=== PATIENT | male | born 1990 | race African-American/Black ===

== ENCOUNTER 2021-01-06 23:27 | Inpatient (IN) | payer SELFPAY ==
[~2021-01-06] VITALS: Ht 167.6 cm; Wt 101.7 kg
[2021-01-06] MEDS ORDERED: KETOROLAC TROMETHAMINE 30 MG/ML VIAL IV STA (23:44)
[2021-01-07] VITALS (21 sets, daily range): BP systolic 100–192; BP diastolic 46–112
[2021-01-07 00:01] LABS: BASOPHILS % 0.1 % (0.0-1.0); EOSINOPHILS % 0.4 % (0.0-6.0); HEMATOCRIT 46.4 % (38.2-49.6); HEMOGLOBIN 15.8 g/dL (14.0-18.0); LYMPHOCYTES # (AUTO) 1.9 (1.0-3.2); LYMPHOCYTES % 21.8 % (18.0-39.1); MEAN CORPUSCULAR HEMOGLOBIN 32.2 pg (28-32); MEAN CORPUSCULAR HGB CONC 34.1 g/dL (31-35); MEAN CORPUSCULAR VOLUME 94.7 fL (81-99); MONOCYTES # (AUTO) 0.3 (0.2-0.8); MONOCYTES % 2.9 % (4.4-11.3); NEUTROPHILS # (AUTO) 6.3 (2.1-6.9); NEUTROPHILS % 74.4 % (38.7-80.0); PLATELET COUNT 298 x10e3/uL (140-360); RED CELL DISTRIBUTION WIDTH 12.3 % (11.7-14.4)
[2021-01-07 00:16] LABS: INR 1.17; PARTIAL THROMBOPLASTIN TIME 23.8 seconds (23.8-35.5); PROTHROMBIN TIME 15.6 seconds (11.9-14.5)
[2021-01-07 00:26] LABS: ALANINE AMINOTRANSFERASE 458 IU/L (0-55); ALBUMIN 4.2 g/dL (3.5-5.0); ALBUMIN/GLOBULIN RATIO 1.2 (0.8-2.0); ALKALINE PHOSPHATASE 61 IU/L (40-150); ANION GAP 24.8 mmol/L (8-16); BLOOD UREA NITROGEN 8 mg/dL (7-26); BUN/CREATININE RATIO 6 (6-25); CALCIUM 8.3 mg/dL (8.4-10.2); CARBON DIOXIDE 15 mmol/L (22-29); CHLORIDE 103 mmol/L (98-107); CREATINE KINASE 416 IU/L (30-200); CREATININE, SERUM 1.31 mg/dL (0.72-1.25); EST GLOMERULAR FILTRATION RATE > 60 ML/MIN (60-); GLUCOSE 215 mg/dL (74-118); POTASSIUM 3.8 mmol/L (3.5-5.1); SODIUM 139 mmol/L (136-145)
[2021-01-07 02:06] LABS: AMPHETAMINES SCREEN,URINE NEGATIVE (NEGATIVE); BENZODIAZEPINES SCREEN,URINE POSITIVE (NEGATIVE); PHENCYCLIDINE SCREEN,URINE NEGATIVE (NEGATIVE)
[2021-01-07] MEDS ORDERED: HYDRALAZINE HCL 20 MG/ML VIAL IV STA (02:19)
[2021-01-07] MEDS ORDERED: HYDRALAZINE HCL 20 MG/ML VIAL ONE (02:34)
[2021-01-07] MEDS ORDERED: DEXTROSE 5% IV ONE ×4 (02:45→09:00)
[2021-01-07] MEDS ORDERED: ACETYLCYSTEINE IV ONE ×4 (02:45→09:00)
[2021-01-07 02:55] LABS: AMYLASE 71 U/L (25-125); LIPASE 19 U/L (8-78)
[2021-01-07] MEDS ORDERED: ACETYLCYSTEINE 200 MG/1 ML IV ONE (02:59)
[2021-01-07] MEDS ORDERED: DEXTROSE 5% 100ML 200 ML IV ONE (03:03)
[2021-01-07] MEDS ORDERED: DEXTROSE 5% 1,000 ML IV ONE ×2 (03:04→03:14)
[2021-01-07] MEDS ORDERED: ONDANSETRON HCL INJ 2MG/ML 2ML 2 MG/ML VIAL IV PRN (03:30)
[2021-01-07] MEDS ORDERED: IOPAMIDOL 370 MG/ML 200 ML INFUS..BTL INJ ONE (03:56)
[2021-01-07] MEDS ORDERED: SODIUM CHLORIDE 0.9% 50ML 50 ML ONE (03:56)
[2021-01-07] MEDS: SODIUM CHLORIDE 0.9% 1000ML 1,000 ML IV SCH ×4 (04:05→22:46)
[2021-01-07] MEDS: HYDRALAZINE HCL 20 MG/ML VIAL IV PRN ×2 (04:30→08:37)
[2021-01-07] MEDS: ONDANSETRON HCL INJ 2MG/ML 2ML 2 MG/ML VIAL IV PRN ×2 (04:30→17:46)
[2021-01-07] MEDS: MORPHINE SULFATE INJ 4 MG/ML INJ 1ML IV PRN ×2 (04:30→17:46)
[2021-01-07 06:14] LABS: BASOPHILS % 0.2 % (0.0-1.0); EOSINOPHILS % 0.2 % (0.0-6.0); HEMATOCRIT 44.4 % (38.2-49.6); HEMOGLOBIN 15.1 g/dL (14.0-18.0); LYMPHOCYTES # (AUTO) 2.1 (1.0-3.2); LYMPHOCYTES % 18.9 % (18.0-39.1); MEAN CORPUSCULAR HEMOGLOBIN 31.8 pg (28-32); MEAN CORPUSCULAR VOLUME 93.5 fL (81-99); MONOCYTES # (AUTO) 0.4 (0.2-0.8); MONOCYTES % 3.7 % (4.4-11.3); NEUTROPHILS # (AUTO) 8.3 (2.1-6.9); NEUTROPHILS % 76.5 % (38.7-80.0); PLATELET COUNT 271 x10e3/uL (140-360); RED BLOOD COUNT 4.75 x10e6/uL (4.3-5.7); RED CELL DISTRIBUTION WIDTH 12.3 % (11.7-14.4)
[2021-01-07 06:44] LABS: ALANINE AMINOTRANSFERASE 824 IU/L (0-55); ALBUMIN 3.5 g/dL (3.5-5.0); ALBUMIN/GLOBULIN RATIO 1.4 (0.8-2.0); ALKALINE PHOSPHATASE 56 IU/L (40-150); BLOOD UREA NITROGEN 7 mg/dL (7-26); BUN/CREATININE RATIO 7 (6-25); CALCIUM 7.5 mg/dL (8.4-10.2); CARBON DIOXIDE 15 mmol/L (22-29); CHLORIDE 106 mmol/L (98-107); CREATININE, SERUM 1.05 mg/dL (0.72-1.25); EST GLOMERULAR FILTRATION RATE > 60 ML/MIN (60-); GLUCOSE 239 mg/dL (74-118); SODIUM 136 mmol/L (136-145)
[2021-01-07 07:37] LABS: INR 1.55; PROTHROMBIN TIME 19.3 seconds (11.9-14.5)
[2021-01-07 07:38] LABS: PARTIAL THROMBOPLASTIN TIME 29.2 seconds (23.8-35.5)
[2021-01-07] MEDS ORDERED: LABETALOL HCL 5 MG/ML 20ML VIAL IV PRN (09:30)
[2021-01-07] MEDS ORDERED: POTASSIUM CHLORIDE 20 MEQ TAB CR PO ONE ×2 (09:55→11:00)
[2021-01-07] MEDS: NIFEDIPINE CR 30 MG TAB PO SCH (10:14)
[2021-01-07] MEDS: NICARDIPINE HCL SOLN 20 MG in SODIUM CHLORIDE 0.9% 250ML 200 ML IV SCH ×2 (10:14→16:22)
[2021-01-07 14:32] LABS: CREATINE KINASE MB 14.7 ng/mL (0-5.0)
[2021-01-07] MEDS ORDERED: ASPIRIN 325 MG TAB PO ONE (15:50)
[2021-01-07] MEDS: LABETALOL HCL 100 MG TAB PO SCH (17:38)
[2021-01-07] MEDS ORDERED: LABETALOL HCL 100 MG TAB PO SCH (17:45)
[2021-01-08] VITALS (25 sets, daily range): BP systolic 98–153; BP diastolic 50–101
[2021-01-08] MEDS: ALBUTEROL/IPRATROPIUM 3 ML NEB NEB SCH ×4 (00:20→19:53)
[2021-01-08] MEDS: MORPHINE SULFATE INJ 4 MG/ML INJ 1ML IV PRN ×2 (04:30→21:26)
[2021-01-08] MEDS: DEXTROSE 5% IV SCH ×2 (05:00→22:04)
[2021-01-08] MEDS ORDERED: ACETYLCYSTEINE 200 MG/ML 4ML VIAL MC SCH (05:00)
[2021-01-08] MEDS: ACETYLCYSTEINE IV SCH ×2 (05:00→22:04)
[2021-01-08 05:11] LABS: COLOR,URINE BROWN (YELLOW)
[2021-01-08 05:12] LABS: CLARITY,URINE TURBID (CLEAR); KETONES,URINE 1+ (NEGATIVE); LEUKOCYTE ESTERASE ,URINE LARGE (NEGATIVE); NITRITE,URINE POSITIVE (NEGATIVE); PROTEIN,URINE DIPSTICK >=300 (NEGATIVE); URINE UROBILINOGEN 1 mg/dL (0.2 - 1)
[2021-01-08 05:23] LABS: AMORPHOUS SEDIMENT,URINE MANY (FEW); BACTERIA,URINE MODERATE /HPF; EPITHELIAL CELLS,URINE FEW /LPF; RBC,URINE 21-50 /HPF (0-5)
[2021-01-08 05:52] LABS: BASOPHILS % 0.2 % (0.0-1.0); EOSINOPHILS # (AUTO) 10.7 (0.0-0.4); HEMATOCRIT 39.2 % (38.2-49.6); HEMOGLOBIN 12.5 g/dL (14.0-18.0); LYMPHOCYTES # (AUTO) 0.8 (1.0-3.2); LYMPHOCYTES % 4.6 % (18.0-39.1); MEAN CORPUSCULAR HEMOGLOBIN 32.6 pg (28-32); MEAN CORPUSCULAR HGB CONC 31.9 g/dL (31-35); MEAN CORPUSCULAR VOLUME 102.1 fL (81-99); MONOCYTES # (AUTO) 0.1 (0.2-0.8); MONOCYTES % 0.3 % (4.4-11.3); NEUTROPHILS # (AUTO) 5.6 (2.1-6.9); NEUTROPHILS % 32.5 % (38.7-80.0); PLATELET COUNT 179 x10e3/uL (140-360); RED BLOOD COUNT 3.84 x10e6/uL (4.3-5.7); RED CELL DISTRIBUTION WIDTH 11.9 % (11.7-14.4)
[2021-01-08 06:02] LABS: INR 3.3; PROTHROMBIN TIME 34.3 seconds (11.9-14.5)
[2021-01-08 06:03] LABS: PARTIAL THROMBOPLASTIN TIME 37.1 seconds (23.8-35.5)
[2021-01-08 06:11] LABS: ALBUMIN/GLOBULIN RATIO 1.4 (0.8-2.0); ALKALINE PHOSPHATASE 59 IU/L (40-150); BLOOD UREA NITROGEN 13 mg/dL (7-26); BUN/CREATININE RATIO 10 (6-25); CARBON DIOXIDE 14 mmol/L (22-29); CHLORIDE 108 mmol/L (98-107); CREATININE, SERUM 1.25 mg/dL (0.72-1.25); EST GLOMERULAR FILTRATION RATE > 60 ML/MIN (60-); GLUCOSE 150 mg/dL (74-118); SODIUM 134 mmol/L (136-145)
[2021-01-08 06:13] LABS: CALCIUM 6.8 mg/dL (8.4-10.2)
[2021-01-08 06:23] LABS: CHOL/HDL RATIO 3.1 (3.9-4.7)
[2021-01-08 06:32] LABS: ALANINE AMINOTRANSFERASE 5612 IU/L (0-55)
[2021-01-08 06:42] LABS: THYROID STIMULATING HORMONE 0.104 uIU/mL (0.350-4.940)
[2021-01-08] MEDS: LABETALOL HCL 100 MG TAB PO SCH ×2 (06:43→17:49)
[2021-01-08] MEDS: SODIUM CHLORIDE 0.9% 1000ML 1,000 ML IV SCH ×2 (06:43→10:08)
[2021-01-08 08:21] LABS: BAND NEUTROPHILS % (MANUAL) 9 %; LYMPHOCYTES % (MANUAL) 2 % (19-48); METAMYELOCYTES % (MANUAL) 2 % (0-0); NEUTROPHILS % (MANUAL) 87 % (40-74)
[2021-01-08 08:30] LABS: PLATELET ESTIMATE ADEQUATE; PLATELET MORPHOLOGY COMMENT NORMAL
[2021-01-08] MEDS ORDERED: SODIUM CHLORIDE 0.9% 100 ML ONE ×2 (09:15→09:56)
[2021-01-08] MEDS ORDERED: IOPAMIDOL 370 MG/ML 200 ML INFUS..BTL INJ ONE (09:16)
[2021-01-08] MEDS ORDERED: CALCIUM GLUCONATE 10% INJ 9.3 MEQ in SODIUM CHLORIDE 0.9% 100 ML 100 ML IV ONE (09:30)
[2021-01-08] MEDS: NIFEDIPINE CR 30 MG TAB PO SCH (09:39)
[2021-01-08] MEDS ORDERED: CALCIUM GLUCONATE 10% INJ 0.465 MEQ/ML VIAL ONE (09:55)
[2021-01-08] MEDS ORDERED: CEFEPIME 1GM/NS 0.9% 50 ML 50 ML IV SCH (11:45)
[2021-01-08] MEDS ORDERED: LEVOFLOXACIN 750MG/D5W 150ML 150 ML IV SCH (11:45)
[2021-01-08] MEDS ORDERED: GUAIFENESIN/DEXTROMETHORPHAN LIQD 5 ML UDC NG PRN (11:45)
[2021-01-08 12:21] LABS: INR 3.54; PROTHROMBIN TIME 36.2 seconds (11.9-14.5)
[2021-01-08] MEDS: CEFEPIME HCL 1GM 1 GM in SODIUM CHLORIDE 0.9% 50ML 50 ML IV SCH (12:22)
[2021-01-08 13:26] LABS: B-TYPE NATRIURETIC PEPTIDE2 121.9 pg/mL (0-100)
[2021-01-08] MEDS ORDERED: SODIUM CHLORIDE 0.9% 1000ML 2,990 ML IV ONE (13:45)
[2021-01-08] MEDS ORDERED: FUROSEMIDE INJ 10 MG/ML 4 ML VIAL IV ONE (20:15)
[2021-01-08] MEDS ORDERED: DEXTROSE 5% 1,000 ML IV ONE (22:05)
[2021-01-08] MEDS: SODIUM BICARBONATE 8.4% SYRING 150 ML in DEXTROSE 5% 1,000 ML IV SCH (22:36)
[2021-01-08] MEDS ORDERED: SODIUM BICARBONATE 8.4% SYRING 50 ML ONE (22:36)
[2021-01-08] MEDS ORDERED: ALBUMIN 25% 25GM 100ML 0.25 GM/ML BTL IV ONE ×2 (23:15→23:30)
[2021-01-08] MEDS ORDERED: PHYTONADIONE 10 MG/ML AMP SQ ONE (23:45)
[2021-01-08] MEDS ORDERED: RIFAXIMIN 550 MG TABLET PO SCH (23:45)
[2021-01-08] MEDS ORDERED: LACTULOSE SYRUP 20 GM/30 ML UDC PO PRN (23:45)
[2021-01-09] VITALS (21 sets, daily range): BP systolic 121–192; BP diastolic 67–99
[2021-01-09] MEDS ORDERED: PHYTONADIONE 10 MG/ML AMP IV ONE ×2 (00:15→09:00)
[2021-01-09] MEDS: CEFEPIME HCL 1GM 1 GM in SODIUM CHLORIDE 0.9% 50ML 50 ML IV SCH (00:22)
[2021-01-09] MEDS ORDERED: SODIUM CHLORIDE 0.9% 50ML 50 ML ONE (00:42)
[2021-01-09] MEDS: ALBUTEROL/IPRATROPIUM 3 ML NEB NEB SCH ×3 (03:45→11:30)
[2021-01-09] MEDS: LABETALOL HCL 100 MG TAB PO SCH (06:40)
[2021-01-09 08:06] LABS: ALBUMIN 2.9 g/dL (3.5-5.0); ALBUMIN/GLOBULIN RATIO 1.3 (0.8-2.0); ANION GAP 20.4 mmol/L (8-16); CREATININE, SERUM 4.85 mg/dL (0.72-1.25); POTASSIUM 5.4 mmol/L (3.5-5.1)
[2021-01-09 08:12] LABS: CALCIUM 6.8 mg/dL (8.4-10.2)
[2021-01-09 08:21] LABS: INR 2.44; PARTIAL THROMBOPLASTIN TIME 37.3 seconds (23.8-35.5); PROTHROMBIN TIME 27.3 seconds (11.9-14.5)
[2021-01-09] MEDS: NIFEDIPINE CR 30 MG TAB PO SCH (08:37)
[2021-01-09] MEDS: RIFAXIMIN 550 MG TABLET PO SCH ×2 (08:37→17:07)
[2021-01-09 08:38] LABS: BASOPHILS # (AUTO) 0.1 (0.0-0.1); BASOPHILS % 0.4 % (0.0-1.0); EOSINOPHILS # (AUTO) 12.5 (0.0-0.4); EOSINOPHILS % 66.5 % (0.0-6.0); HEMATOCRIT 25.5 % (38.2-49.6); HEMOGLOBIN 8.2 g/dL (14.0-18.0); LYMPHOCYTES # (AUTO) 2.1 (1.0-3.2); LYMPHOCYTES % 11.3 % (18.0-39.1); MEAN CORPUSCULAR HEMOGLOBIN 33.9 pg (28-32); MEAN CORPUSCULAR HGB CONC 32.2 g/dL (31-35); MEAN CORPUSCULAR VOLUME 105.4 fL (81-99); MONOCYTES # (AUTO) 0.1 (0.2-0.8); MONOCYTES % 0.6 % (4.4-11.3); NEUTROPHILS # (AUTO) 3.9 (2.1-6.9); NEUTROPHILS % 20.7 % (38.7-80.0); PLATELET COUNT 141 x10e3/uL (140-360); RED BLOOD COUNT 2.42 x10e6/uL (4.3-5.7)
[2021-01-09] MEDS ORDERED: PHYTONADIONE 10 MG/ML AMP SQ SCH (09:00)
[2021-01-09] MEDS ORDERED: PHYTONADIONE 10 MG/ML AMP IV SCH (09:00)
[2021-01-09] MEDS: OCTREOTIDE ACETATE 0.1 MG/ML 100MCG AMP SQ SCH ×3 (10:12→21:00)
[2021-01-09] MEDS: MORPHINE SULFATE INJ 4 MG/ML INJ 1ML IV PRN (10:36)
[2021-01-09] MEDS: LACTULOSE SYRUP 20 GM/30 ML UDC PO SCH ×3 (10:36→22:00)
[2021-01-09] MEDS: ALBUMIN 25% 25GM 100ML 0.25 GM/ML BTL IV SCH ×2 (10:44→18:32)
[2021-01-09] MEDS ORDERED: PHYTONADIONE 10MG/ML 20 MG in SODIUM CHLORIDE 0.9% 50ML 50 ML IV ONE (11:00)
[2021-01-09] MEDS ORDERED: SODIUM CHLORIDE 0.45% 1,000 ML ONE (11:59)
[2021-01-09] MEDS ORDERED: LEVOFLOXACIN 250MG/D5W 50ML 50 ML IV SCH (12:00)
[2021-01-09 12:33] LABS: ABG HCO3 19 mmol/L (22-26); ABG PCO2 37 mmHg (35-45); ABG PH 7.32 (7.35-7.45); ABG PO2 201 mmHg (80-105); ABG TCO2 20
[2021-01-09] MEDS ORDERED: CALCIUM CHLORIDE 10% 1.36 MEQ/ML 10ML SYR IV ONE (12:49)
[2021-01-09] MEDS ORDERED: DOPAmine/D5W 1.6 MG/ML 400 MG/250ML PREMIX IV ONE (12:49)
[2021-01-09] MEDS ORDERED: SODIUM BICARBONATE 8.4% INJ 50 ML SYR ONE ×2 (12:49→12:52)
[2021-01-09] MEDS ORDERED: EPINEPHRINE HCL SYRINGE ONE ×2 (12:49→12:52)
[2021-01-09] MEDS ORDERED: ATROPINE SULFATE 0.1 MG/ML 10ML SYR ONE ×2 (12:49→12:52)
[2021-01-09] MEDS ORDERED: VECURONIUM BROMIDE FOR INJ 20 MG VIAL ONE (12:55)
[2021-01-09] MEDS ORDERED: WATER STERILE 10 ML VIAL ONE (12:55)
[2021-01-09] MEDS ORDERED: ETOMIDATE 2 MG/ML 10 ML INJ IV ONE (12:55)
[2021-01-09] MEDS ORDERED: SODIUM CHLORIDE 0.9% 1000ML 2,000 ML IV PRN (15:00)
[2021-01-09] MEDS ORDERED: HEPARIN SOD (PORCINE) 1000 UNIT/ML SDV IV PRN (15:00)
[2021-01-09] MEDS: DEXTROSE 5% IV SCH (15:13)
[2021-01-09] MEDS: ACETYLCYSTEINE IV SCH (15:13)
[2021-01-09] MEDS ORDERED: ALBUTEROL/IPRATROPIUM 3 ML NEB NEB PRN (15:30)
[2021-01-09] MEDS: SODIUM BICARBONATE 8.4% SYRING 150 ML in DEXTROSE 5% 1,000 ML IV SCH (15:33)
[2021-01-09] MEDS ORDERED: NICARDIPINE HCL SOLN 20 MG in SODIUM CHLORIDE 0.9% 250ML 200 ML IV SCH (15:45)
[2021-01-09] MEDS ORDERED: SODIUM CHLORIDE 0.9% 1000ML 1,000 ML IV ONE (17:15)
[2021-01-09] MEDS ORDERED: LABETALOL HCL 200 MG TAB PO SCH (18:00)
[2021-01-09] MEDS ORDERED: IBUPROFEN 600 MG TAB PO PRN (19:00)
[2021-01-09] MEDS ORDERED: LABETALOL HCL 5 MG/ML 20ML VIAL IV PRN (19:30)
[2021-01-09] MEDS ORDERED: IBUPROFEN 800MG/ 200ML 800 MG in SODIUM CHLORIDE 0.9% 250ML 250 ML IV ONE (19:45)
[2021-01-09] MEDS ORDERED: MIDAZOLAM HCL 5MG/ML 10ML VIAL 0 ML IV ONE (19:52)
[2021-01-09] MEDS ORDERED: FENTANYL ONE (19:52)
[2021-01-09] MEDS ORDERED: [UNRECOGNIZED DRUG - OTHER] ONE (19:52)
[2021-01-09] MEDS ORDERED: PROPOFOL IV EMULSION 10MG/ML 100 ML ONE (19:56)
[2021-01-09 20:07] LABS: BASOPHILS # (AUTO) 0.1 (0.0-0.1); BASOPHILS % 0.3 % (0.0-1.0); EOSINOPHILS # (AUTO) 0.1 (0.0-0.4); EOSINOPHILS % 0.7 % (0.0-6.0); HEMATOCRIT 22.6 % (38.2-49.6); LYMPHOCYTES # (AUTO) 2.6 (1.0-3.2); MEAN CORPUSCULAR HEMOGLOBIN 33.3 pg (28-32); MEAN CORPUSCULAR VOLUME 107.6 fL (81-99); MONOCYTES # (AUTO) 0.8 (0.2-0.8); MONOCYTES % 5.1 % (4.4-11.3); NEUTROPHILS # (AUTO) 11.6 (2.1-6.9); NEUTROPHILS % 75.6 % (38.7-80.0); PLATELET COUNT 147 x10e3/uL (140-360)
[2021-01-09] MEDS ORDERED: IBUPROFEN 800MG/ 200ML 200 ML IV ONE (20:13)
[2021-01-09] MEDS ORDERED: PROPOFOL IV EMULSION 10MG/ML 100 ML IV SCH (20:15)
[2021-01-09 20:25] LABS: ALBUMIN 3.3 g/dL (3.5-5.0); ALBUMIN/GLOBULIN RATIO 0.9 (0.8-2.0); ANION GAP 26.4 mmol/L (8-16); CALCIUM 7.7 mg/dL (8.4-10.2); CREATININE, SERUM 4.3 mg/dL (0.72-1.25); POTASSIUM 4.4 mmol/L (3.5-5.1)
[2021-01-09 20:38] LABS: ALBUMIN 3.4 g/dL (3.5-5.0); BILIRUBIN,DIRECT 8.2 mg/dL (0.0-0.5)
[2021-01-09 20:47] LABS: ANISOCYTOSIS SLIGHT; LYMPHOCYTES % (MANUAL) 21 % (19-48); MONOCYTES % (MANUAL) 6 % (3.4-9.0); NEUTROPHILS % (MANUAL) 73 % (40-74); PLATELET ESTIMATE ADEQUATE; PLATELET MORPHOLOGY COMMENT NORMAL
[2021-01-09 21:44] LABS: INR 1.66; PROTHROMBIN TIME 20.3 seconds (11.9-14.5)
[2021-01-09 21:45] LABS: PARTIAL THROMBOPLASTIN TIME 32.1 seconds (23.8-35.5)
[2021-01-09] MEDS ORDERED: LORAZEPAM INJ 2 MG/ML VIAL IV PRN (21:45)
[2021-01-09] MEDS ORDERED: PIPERACILLIN/TAZO 2.25 GM 50 ML IV SCH (22:00)
[2021-01-09] MEDS ORDERED: PIPERACILLIN/TAZOBACTAM 2.25 GM in SODIUM CHLORIDE 0.9% 50ML 50 ML IV SCH (22:00)
[2021-01-09] MEDS: NOREPINEPHRINE INJ 4MG/4ML 8 MG in DEXTROSE 5% 250ML 250 ML IV PRN (22:15)
[2021-01-09] MEDS ORDERED: NOREPINEPHRINE 8 MG/D5W 250 ML 250 ML ONE (22:15)
[2021-01-09 22:32] LABS: HEMATOCRIT 18.9 % (38.2-49.6); MEAN CORPUSCULAR HEMOGLOBIN 33.9 pg (28-32); MEAN CORPUSCULAR HGB CONC 31.2 g/dL (31-35); MEAN CORPUSCULAR VOLUME 108.6 fL (81-99); PLATELET COUNT 121 x10e3/uL (140-360); RED BLOOD COUNT 1.74 x10e6/uL (4.3-5.7); RED CELL DISTRIBUTION WIDTH 15.9 % (11.7-14.4)
[2021-01-09 22:39] LABS: HEMOGLOBIN 5.9 g/dL (14.0-18.0)
[2021-01-09 22:45] LABS: ABG PCO2 36 mmHg (35-45); ABG PH 7.33 (7.35-7.45); ABG PO2 215 mmHg (80-105)
[2021-01-09] MEDS ORDERED: SODIUM CHLORIDE 0.9% 250ML 250 ML IV ONE (22:45)
[2021-01-09 22:46] LABS: ABG HCO3 19 mmol/L (22-26); ABG TCO2 20
[2021-01-09 22:50] LABS: ALANINE AMINOTRANSFERASE 2396 IU/L (0-55); ALBUMIN 2.8 g/dL (3.5-5.0); ALKALINE PHOSPHATASE 75 IU/L (40-150); BILIRUBIN,DIRECT 7.3 mg/dL (0.0-0.5)
[2021-01-09 22:53] LABS: ALANINE AMINOTRANSFERASE 2431 IU/L (0-55); ALBUMIN 2.9 g/dL (3.5-5.0); ALBUMIN/GLOBULIN RATIO 0.9 (0.8-2.0); ALKALINE PHOSPHATASE 73 IU/L (40-150); ANION GAP 26.7 mmol/L (8-16); BLOOD UREA NITROGEN 24 mg/dL (7-26); BUN/CREATININE RATIO 5 (6-25); CARBON DIOXIDE 17 mmol/L (22-29); CHLORIDE 98 mmol/L (98-107); CREATINE KINASE 601 IU/L (30-200); CREATININE, SERUM 5.17 mg/dL (0.72-1.25); EST GLOMERULAR FILTRATION RATE 16 ML/MIN (60-); GLUCOSE 155 mg/dL (74-118); MAGNESIUM 1.6 MG/DL (1.3-2.1); PHOSPHORUS 4.4 MG/DL (2.3-4.7); POTASSIUM 4.7 mmol/L (3.5-5.1); SODIUM 137 mmol/L (136-145)
[2021-01-09 22:57] LABS: CALCIUM 9.1 mg/dL (8.4-10.2)
[2021-01-09] MEDS ORDERED: SODIUM CHLORIDE 0.9% 250ML 250 ML ONE (23:11)
[2021-01-09 23:16] LABS: B-TYPE NATRIURETIC PEPTIDE2 1828.3 pg/mL (0-100)
[2021-01-09] MEDS ORDERED: DEXAMETHASONE SOD PHOS 10 MG/1 ML VIAL ONE (23:54)
[2021-01-10] MEDS ORDERED: DEXAMETHASONE 10MG/ML PF INJ IV ONE
[2021-01-10] MEDS: ALBUMIN 25% 25GM 100ML 0.25 GM/ML BTL IV SCH
[2021-01-10] MEDS ORDERED: MANNITOL 25% 12.5GM/50 ML VIAL IV ONE
[2021-01-10] MEDS ORDERED: MANNITOL 25% 12.5GM/50ML 100 ML ONE (00:07)
[2021-01-10] MEDS ORDERED: MANNITOL 25% 12.5GM/50ML 50 ML ONE ×2 (00:08)
[2021-01-10] MEDS ORDERED: SODIUM CHLORIDE 0.9% 250ML 250 ML IV ONE (00:15)
[2021-01-10 00:35] LABS: ABG PCO2 34 mmHg (35-45); ABG PH 7.36 (7.35-7.45)
[2021-01-10 00:36] LABS: ABG HCO3 18 mmol/L (22-26); ABG PO2 62 mmHg (80-105); ABG TCO2 19
[2021-01-10 00:37] LABS: MEAN CORPUSCULAR HEMOGLOBIN 31.6 pg (28-32); MEAN CORPUSCULAR HGB CONC 33.5 g/dL (31-35); RED BLOOD COUNT 1.71 x10e6/uL (4.3-5.7)
[2021-01-10 00:45] LABS: INR 3.97; PARTIAL THROMBOPLASTIN TIME 46.6 seconds (23.8-35.5); PROTHROMBIN TIME 39.5 seconds (11.9-14.5)
[2021-01-10] MEDS ORDERED: VASOPRESSIN 60 UNIT in DEXTROSE 5% 50ML 57 ML IV PRN (00:45)
[2021-01-10 00:48] LABS: HEMOGLOBIN 5.4 g/dL (14.0-18.0); MEAN CORPUSCULAR VOLUME 94.2 fL (81-99); PLATELET COUNT 77 x10e3/uL (140-360); RED CELL DISTRIBUTION WIDTH 18.4 % (11.7-14.4)
[2021-01-10 00:49] LABS: HEMATOCRIT 16.1 % (38.2-49.6)
[2021-01-10 00:53] LABS: ALANINE AMINOTRANSFERASE 1431 IU/L (0-55); ALBUMIN 2.2 g/dL (3.5-5.0); ALBUMIN/GLOBULIN RATIO 1.1 (0.8-2.0); ALKALINE PHOSPHATASE 40 IU/L (40-150); BLOOD UREA NITROGEN 20 mg/dL (7-26); BUN/CREATININE RATIO 5 (6-25); CHLORIDE 83 mmol/L (98-107); CREATININE, SERUM 3.92 mg/dL (0.72-1.25); EST GLOMERULAR FILTRATION RATE 22 ML/MIN (60-); GLUCOSE 222 mg/dL (74-118); POTASSIUM 5.2 mmol/L (3.5-5.1)
[2021-01-10 00:57] LABS: ANION GAP 72.2 mmol/L (8-16)
[2021-01-10 00:58] LABS: SODIUM > 200 mmol/L (136-145)
[2021-01-10 00:59] LABS: CALCIUM 6.1 mg/dL (8.4-10.2); CARBON DIOXIDE > 50 mmol/L (22-29)
[2021-01-10] MEDS ORDERED: ATROPINE SULFATE 0.1 MG/ML 10ML SYR ONE ×2 (01:43)
[2021-01-10 02:28] LABS: LYMPHOCYTES % (MANUAL) 35 % (19-48); NEUTROPHILS % (MANUAL) 65 % (40-74); RBC MORPHOLOGY COMMENT ABNORMAL
[2021-01-10 02:29] LABS: HYPOCHROMASIA MARKED; PLATELET ESTIMATE MODERATELY DECREASED; POIKILOCYTOSIS MARKED
[2021-01-10 02:30] LABS: SMUDGE CELLS MODERATE
[2021-01-10] MEDS: NOREPINEPHRINE INJ 4MG/4ML 8 MG in DEXTROSE 5% 250ML 250 ML IV PRN (03:15)
[2021-01-10 05:24] LABS: EOSINOPHILS % 0.2 % (0.0-6.0); LYMPHOCYTES # (AUTO) 2.9 (1.0-3.2); LYMPHOCYTES % 61.1 % (18.0-39.1); MEAN CORPUSCULAR HEMOGLOBIN 34.2 pg (28-32); MEAN CORPUSCULAR HGB CONC 30.1 g/dL (31-35); MEAN CORPUSCULAR VOLUME 113.3 fL (81-99); MONOCYTES # (AUTO) 0.2 (0.2-0.8); MONOCYTES % 4.7 % (4.4-11.3); NEUTROPHILS # (AUTO) 1.5 (2.1-6.9); NEUTROPHILS % 32.1 % (38.7-80.0)
[2021-01-10 05:29] LABS: HEMATOCRIT 13.6 % (38.2-49.6); PLATELET COUNT 46 x10e3/uL (140-360)
[2021-01-10 05:32] LABS: ALANINE AMINOTRANSFERASE 1669 IU/L (0-55); ALBUMIN 2.3 g/dL (3.5-5.0); ALBUMIN/GLOBULIN RATIO 0.8 (0.8-2.0); ALKALINE PHOSPHATASE 51 IU/L (40-150); BLOOD UREA NITROGEN 23 mg/dL (7-26); BUN/CREATININE RATIO 4 (6-25); CHLORIDE 95 mmol/L (98-107); CREATININE, SERUM 5.67 mg/dL (0.72-1.25); EST GLOMERULAR FILTRATION RATE 14 ML/MIN (60-); GLUCOSE 334 mg/dL (74-118); HEMOGLOBIN 4.1 g/dL (14.0-18.0); MAGNESIUM 2.2 MG/DL (1.3-2.1); PHOSPHORUS 15.9 MG/DL (2.3-4.7)
[2021-01-10 05:44] LABS: CARBON DIOXIDE < 5 mmol/L (22-29)
[2021-01-10 05:45] LABS: CALCIUM 9.3 mg/dL (8.4-10.2); POTASSIUM > 10.0 mmol/L (3.5-5.1); SODIUM 137 mmol/L (136-145)
[2021-01-10 07:59] LABS: ANISOCYTOSIS MODERATE; BURR CELLS MODERATE; LYMPHOCYTES % (MANUAL) 78 % (19-48); MONOCYTES % (MANUAL) 1 % (3.4-9.0); MYELOCYTES % (MANUAL) 1 % (0-0); NEUTROPHILS % (MANUAL) 20 % (40-74); NUCLEATED RED BLOOD CELLS 3
[2021-01-10 08:00] LABS: OVALOCYTES FEW; RBC MORPHOLOGY COMMENT ABNORMAL
[2021-01-10 08:03] LABS: MICROCYTOSIS SLIGHT; PLATELET ESTIMATE MARKEDLY DECREASED; PLATELET MORPHOLOGY COMMENT NORMAL
[2021-01-10] MEDS ORDERED: CEFEPIME HCL 1GM 1 GM in SODIUM CHLORIDE 0.9% 50ML 50 ML IV SCH (09:00)
[2021-01-10] MEDS ORDERED: NIFEDIPINE CR 30 MG TAB PO SCH (09:00)
== END 2021-01-10 18:08 | disposition expired | DRG 871 ==
LOC: ER 01-07 00:50 → ERHOLD 01-07 03:28 → ICU 01-07 04:00
PROVIDERS: ADMIT Internal Medicine; ATTEND Internal Medicine
PROC: 02HV33Z Insertion of Infusion Device into Superior Vena Cava, Percutaneous Approach (ICD-10-PCS; 2021-01-08)
PROC: 0BH18EZ Insertion of Endotracheal Airway into Trachea, Via Natural or Artificial Opening Endoscopic (ICD-10-PCS; principal; 2021-01-09)
PROC: 5A1945Z Respiratory Ventilation, 24-96 Consecutive Hours (ICD-10-PCS; 2021-01-09)
PROC: 30243K1 Transfusion of Nonautologous Frozen Plasma into Central Vein, Percutaneous Approach (ICD-10-PCS; 2021-01-09)
PROC: 30243N1 Transfusion of Nonautologous Red Blood Cells into Central Vein, Percutaneous Approach (ICD-10-PCS; 2021-01-09)
DX: A41.9 Sepsis, unspecified organism (principal); G93.6 Cerebral edema; I67.83 Posterior reversible encephalopathy syndrome; R65.21 Severe sepsis with septic shock; K72.00 Acute and subacute hepatic failure without coma; K76.7 Hepatorenal syndrome; J96.00 Acute respiratory failure, unspecified whether with hypoxia or hypercapnia; I24.8 Other forms of acute ischemic heart disease; N17.9 Acute kidney failure, unspecified; G93.40 Encephalopathy, unspecified; E87.2 Acidosis; I46.9 Cardiac arrest, cause unspecified; T39.1X1A Poisoning by 4-Aminophenol derivatives, accidental (unintentional), initial encounter; F17.210 Nicotine dependence, cigarettes, uncomplicated; I10 Essential (primary) hypertension; I15.8 Other secondary hypertension; F10.10 Alcohol abuse, uncomplicated; J45.909 Unspecified asthma, uncomplicated; Z20.822 Contact with and (suspected) exposure to COVID-19; N14.1 Nephropathy induced by other drugs, medicaments and biological substances; T50.8X5A Adverse effect of diagnostic agents, initial encounter; E83.51 Hypocalcemia; E87.5 Hyperkalemia
CPT/HCPCS: 31500; 36415; 36569; 36600; 70450; 71045; 71250; 71260; 74174; 74176; 76705; 80053; 80061; 80076; 80307; 80329; 81001; 82140; 82150; 82533; 82550; 82553; 82805; 82948; 83605; 83690; 83735; 83880; 84100; 84146; 84300; 84443; 84484; 85007; 85025; 85027; 85379; 85610; 85730; 86592; 86704; 86706; 86850; 86900; 86920; 87040; 87070; 87086; 87186; 87205; 87340; 92950; 93005; 93306; 94002; 94640; 94660; 99285; J0171; J0360; J0610; J0692; J1100; J1644; J1885; J1940; J1956; J2060; J2150; J2270; J2354; J2405; J3430; J7030; J7050; J7070; P9016; P9017; P9047; Q9967; U0002